=== PATIENT | female | born 1980 | race American Indian/Alaskan Native ===

== ENCOUNTER 2021-11-25 08:25 | Emergency (ER) | payer SELFPAY ==
[2021-11-25] MEDS ORDERED: oxyCODONE /ACETAMINOPHEN 5-325MG TAB PO ONE (09:25)
[2021-11-25] MEDS ORDERED: DEXAMETHASONE 4 MG TAB PO ONE (09:25)
[2021-11-25] MEDS ORDERED: AMOXICILLIN/K CLAV 875/125MG TAB PO ONE (09:25)
[2021-11-25] MEDS ORDERED: KETOROLAC 10 MG TAB PO ONE (09:25)
--- NOTE | 2021-11-25 09:28 | Emergency Department Report ---
ED ENT HPI - General Chief complaint: Dental/Oral Stated complaint: RT SIDE TOOTH PAIN Time Seen by Provider: 11/25/21 09:00 Source: patient Mode of arrival: Ambulatory Limitations: No Limitations - History of Present Illness Initial comments: 41-year-old black female presents to the emergency department with few day history of worsening tooth pain. She states that she has been using Tylenol and ibuprofen for pain to her right upper tooth but pain is getting worse and she woke up this morning with swelling to the right side of her face. She denies fever at home. MD complaint: tooth pain -: Gradual, days(s) (3-4) Location: tooth # (5) Severity: severe Severity scale (0 -10): 10 Quality: aching Consistency: constant Context- Dental: history of dental caries Associated Symptoms: gum swelling, toothache. denies: fever, cough, pain with swallowing, sore throat, tinnitus, hearing loss, discharge from ear, rhinorrhea - Related Data Previous Rx's Medication Instructions Recorded Last Taken Type Acetaminophen/Codeine [Tylenol 1 tab PO Q6H PRN #12 tab 11/25/21 Unknown Rx /Codeine # 3 tab] Amoxicillin/Potassium Clav 1 each PO BID 7 Days #14 tab 11/25/21 Unknown Rx [Augmentin 875-125 Tablet] Ketorolac [Toradol] 10 mg PO Q6H PRN #10 tab 11/25/21 Unknown Rx Allergies Allergy/AdvReac Type Severity Reaction Status Date / Time ziprasidone [From Geodon] Allergy Unknown Verified 11/25/21 08:56 ED Dental HPI - General Chief complaint: Dental/Oral Stated complaint: RT SIDE TOOTH PAIN Time Seen by Provider: 11/25/21 09:00 Source: patient Mode of arrival: Ambulatory Limitations: No Limitations - Related Data Previous Rx's Medication Instructions Recorded Last Taken Type Acetaminophen/Codeine [Tylenol 1 tab PO Q6H PRN #12 tab 11/25/21 Unknown Rx /Codeine # 3 tab] Amoxicillin/Potassium Clav 1 each PO BID 7 Days #14 tab 11/25/21 Unknown Rx [Augmentin 875-125 Tablet] Ketorolac [Toradol] 10 mg PO Q6H PRN #10 tab 11/25/21 Unknown Rx Allergies Allergy/AdvReac Type Severity Reaction Status Date / Time ziprasidone [From Geodon] Allergy Unknown Verified 11/25/21 08:56 ED Review of Systems ROS: Stated complaint: RT SIDE TOOTH PAIN Other details as noted in HPI Comment: All other systems reviewed and negative Constitutional: denies: chills, fever ENT: dental pain. denies: ear pain, throat pain, congestion Respiratory: denies: cough, shortness of breath Cardiovascular: denies: chest pain, palpitations Gastrointestinal: denies: abdominal pain, nausea, vomiting Skin: denies: rash, lesions Neurological: denies: headache, weakness ED Past Medical Hx - Medications Home Medications: Home Medications Medication Instructions Recorded Confirmed Last Taken Type Acetaminophen/Codeine [Tylenol 1 tab PO Q6H PRN #12 tab 11/25/21 Unknown Rx /Codeine # 3 tab] Amoxicillin/Potassium Clav 1 each PO BID 7 Days #14 tab 11/25/21 Unknown Rx [Augmentin 875-125 Tablet] Ketorolac [Toradol] 10 mg PO Q6H PRN #10 tab 11/25/21 Unknown Rx ED Physical Exam - General Limitations: No Limitations General appearance: alert, in no apparent distress (.) - Head Head exam: Present: atraumatic, normocephalic - Expanded Head Exam Expanded 1 - Swelling and tenderness to touch noted - Eye Eye exam: Present: normal appearance. Absent: conjunctival injection - Expanded ENT Exam Expanded Teeth exam: Present: dental caries, dental tenderness # (5), gingival enlargement, other (Noted to have dental abscess to the gum surrounding tooth #5 with swelling of entire right side of jaw) - Respiratory Respiratory exam: Present: normal lung sounds bilaterally. Absent: respiratory distress, wheezes, rales, rhonchi, stridor, chest wall tenderness - Cardiovascular Cardiovascular Exam: Present: tachycardia, normal heart sounds - GI/Abdominal GI/Abdominal exam: Present: soft. Absent: distended, tenderness - Extremities Exam Extremities exam: Present: normal inspection - Back Exam Back exam: Present: normal inspection - Neurological Exam Neurological exam: Present: alert, oriented X3 - Psychiatric Psychiatric exam: Present: normal affect, normal mood - Skin Skin exam: Present: warm, dry, intact, normal color ED Course Vital Signs 11/25/21 11/25/21 08:57 09:46 Temperature 99.1 F Pulse Rate 110 H 73 Respiratory 16 16 Rate Blood Pressure 136/91 131/89 [Left] O2 Sat by Pulse 100 100 Oximetry ED Medical Decision Making - Medical Decision Making 41-year-old black female presents to the emergency department with few day history of worsening tooth pain. She states that she has been using Tylenol and ibuprofen for pain to her right upper tooth but pain is getting worse and she woke up this morning with swelling to the right side of her face. She denies fever at home Exam consistent with dental abscess to right upper tooth #5. Patient will be treated in the emergency department with one-time dose of Decadron, Percocet, and Toradol for pain relief. She will also be given Augmentin in ED and discharged home with prescription for Augmentin, Toradol, and Tylenol 3. She is advised to take medications as prescribed and follow-up with dentist for further evaluation and management. She is advised to return to the emergency department as needed. She verbalized understanding of and agreement with plan of care. Critical care attestation.: If time is entered above; I have spent that time in minutes in the direct care of this critically ill patient, excluding procedure time. ED Disposition Clinical Impression: Dental abscess Disposition: 01 HOME / SELF CARE / HOMELESS Is pt being admited?: No Does the pt Need Aspirin: No Condition: Stable Instructions: Dental Abscess, [id number] Additional Instructions: Take medications as prescribed. Follow-up with dentist for further evaluation and management. Return to the emergency department for worsening symptoms or no improvement. Prescriptions: Amoxicillin/Potassium Clav [Augmentin 875-125 Tablet] 1 each PO BID 7 Days #14 tab Ketorolac [Toradol] 10 mg PO Q6H PRN #10 tab PRN Reason: Pain Acetaminophen/Codeine [Tylenol /Codeine # 3 tab] 1 tab PO Q6H PRN #12 tab PRN Reason: Pain , Severe (7-10) Referrals: [facility] [Outside] - 3-5 Days [facility] [Outside] - 3-5 Days Time of Disposition: 09:28
[2021-11-25 09:48] VITALS: BP 131/89
== END 2021-11-25 09:55 | disposition home or self-care (01) ==
LOC: ED 08:25
DX: K04.7 Periapical abscess without sinus (principal); Z88.8 Allergy status to other drugs, medicaments and biological substances; Z79.899 Other long term (current) drug therapy
CPT/HCPCS: 99282; J8540